=== PATIENT | female | born 1970 | race Caucasian/White ===

== ENCOUNTER → 2021-05-28 18:47 | Outpatient (CLI) | payer OTHER, SELFPAY ==
--- NOTE | ~2021-05-28 | XR_ITS ---
XR sacroiliac joints min 3V 05/28/2021 19:06 Indication: Joint pain Procedure: 3 views of the sacroiliac joints Comparison: No prior studies for comparison. Findings: There are mild symmetric degenerative changes of the sacroiliac joints. No evidence for ero sive change or ankylosis. Sacral foramen are symmetric. No fracture or traumatic malalignment. 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 Reviewed, dictated and finalized at location A. 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
== END ==
PROVIDERS: Visit Provider Internal Medicine Rheumatology
DX: M79.10 Myalgia, unspecified site (principal); R53.81 Other malaise; M25.50 Pain in unspecified joint
CPT/HCPCS: 72202